=== PATIENT | male | born 1955 | race Caucasian/White ===

== ENCOUNTER 2016-07-24 15:49 | Inpatient (IN) | payer OTHER ==
[~2016-07-24] VITALS: Ht 185.4 cm; Wt 110.2 kg
[2016-07-24] MEDS ORDERED: DEXTROSE 50% SYRINGE 50 ML IV PRN ×2 (16:55→19:15)
[2016-07-24] MEDS ORDERED: GLUCAGON 1 MG VIAL IM PRN (16:55)
[2016-07-24 17:13] VITALS: BP_SYST 142; BP_SYST 144; RESP 18; TEMP 98.2
[2016-07-24 17:14] VITALS: BMI 32.1
[2016-07-24] MEDS: SOD CHLOR 0.9% 1000 ML IV SCH ×2 (17:40→22:26)
[2016-07-24] MEDS ORDERED: *PINK BRACELET XX ONE (18:30)
[2016-07-24] MEDS ORDERED: INSULIN DRIP 1 UNIT/ML 100 ML IV SCH (19:15)
[2016-07-24 19:23] VITALS: BP_SYST 139; RESP 18; TEMP 98.3
[2016-07-24] MEDS: *HOME MEDS KEPT IN PHARMACY XX SCH (20:00)
[2016-07-24] MEDS: DIVALPROEX DR 500 MG TAB PO SCH (21:13)
[2016-07-24] MEDS: METOPROLOL XL 50 MG TAB PO SCH (21:13)
[2016-07-24] MEDS: LEVETIRACETAM 500 MG TAB PO SCH (21:13)
[2016-07-24] MEDS: PREGABALIN 25 MG CAP PO SCH (21:13)
[2016-07-24 23:07] VITALS: BP_SYST 120; RESP 18; TEMP 96.7
[2016-07-25 03:49] VITALS: BP_SYST 125; RESP 18; TEMP 97.4
[2016-07-25] MEDS: PANTOPRAZOLE 40 MG TAB PO SCH (06:19)
[2016-07-25 07:18] VITALS: BP_SYST 114; RESP 18; TEMP 97.4
[2016-07-25] MEDS: *HOME MEDS KEPT IN PHARMACY XX SCH ×2 (08:00→19:31)
[2016-07-25] MEDS: SOD CHLOR 0.9% 1000 ML IV SCH (08:42)
[2016-07-25] MEDS ORDERED: GLUCAGON 1 MG VIAL IM PRN (08:45)
[2016-07-25] MEDS ORDERED: DEXTROSE 50% SYRINGE 50 ML IV PRN (08:45)
[2016-07-25] MEDS ORDERED: LEVEMIR INSULIN SUBQ SCH (09:00)
[2016-07-25] MEDS: DIVALPROEX DR 500 MG TAB PO SCH ×3 (09:10→21:00)
[2016-07-25] MEDS: METOPROLOL XL 50 MG TAB PO SCH ×2 (09:10→21:00)
[2016-07-25] MEDS: ASPIRIN 81 MG CHEW TAB PO SCH (09:10)
[2016-07-25] MEDS: LEVETIRACETAM 500 MG TAB PO SCH ×2 (09:10→21:00)
[2016-07-25] MEDS: PREGABALIN 25 MG CAP PO SCH ×2 (09:10→20:59)
[2016-07-25] MEDS: SODIUM CHLOR 0.45% W/KCL 20MEQ 1,000 ML IV SCH ×2 (09:12→20:57)
[2016-07-25] MEDS: KCL CR 10 MEQ TAB PO SCH ×2 (09:57→21:00)
[2016-07-25 10:52] VITALS: BP_SYST 118; RESP 18; TEMP 97.7
[2016-07-25] MEDS: NYSTATIN 500,000 UNITS/5 ML SUSP SWISH.SWAL SCH ×3 (15:14→20:59)
[2016-07-25 15:36] VITALS: BP_SYST 122; RESP 18; TEMP 97.6
[2016-07-25 19:00] VITALS: BP_SYST 125; RESP 18; TEMP 98.3
[2016-07-25] MEDS: LEVEMIR INSULIN SUBQ SCH (20:59)
[2016-07-25] MEDS ORDERED: KCL CR 20 MEQ TAB PO ONE (21:15)
[2016-07-25] MEDS: BETAMETH/CLOTRIM CR 15 GM TOPICAL SCH (22:34)
[2016-07-25 23:33] VITALS: BP_SYST 108; RESP 18; TEMP 98.3
[2016-07-26] VITALS (8 sets, daily range): BP systolic 114–144; RESP 16–18; TEMP 97.6–98.6
[2016-07-26] MEDS: PANTOPRAZOLE 40 MG TAB PO SCH (06:36)
[2016-07-26] MEDS: LEVEMIR INSULIN SUBQ SCH ×2 (08:20→21:01)
[2016-07-26] MEDS: LEVETIRACETAM 500 MG TAB PO SCH ×2 (08:21→20:44)
[2016-07-26] MEDS: DIVALPROEX DR 500 MG TAB PO SCH ×3 (08:21→20:44)
[2016-07-26] MEDS: ASPIRIN 81 MG CHEW TAB PO SCH (08:21)
[2016-07-26] MEDS: PREGABALIN 25 MG CAP PO SCH ×2 (08:21→20:43)
[2016-07-26] MEDS: BETAMETH/CLOTRIM CR 15 GM TOPICAL SCH ×2 (08:22→21:13)
[2016-07-26] MEDS: NYSTATIN 500,000 UNITS/5 ML SUSP SWISH.SWAL SCH ×4 (08:22→21:13)
[2016-07-26] MEDS: *HOME MEDS KEPT IN PHARMACY XX SCH ×2 (08:22→20:00)
[2016-07-26] MEDS: METOPROLOL XL 50 MG TAB PO SCH ×2 (08:22→20:44)
[2016-07-26] MEDS: KCL CR 10 MEQ TAB PO SCH (08:22)
[2016-07-26] MEDS: SODIUM CHLOR 0.45% W/KCL 20MEQ 1,000 ML IV SCH (09:17)
[2016-07-27 00:03] VITALS: BP_SYST 129; RESP 16; TEMP 97.7
[2016-07-27 02:00] VITALS: BP_SYST 134; RESP 16; TEMP 98.1
[2016-07-27] MEDS: PANTOPRAZOLE 40 MG TAB PO SCH (06:07)
[2016-07-27 07:19] VITALS: BP_SYST 134; RESP 20
[2016-07-27] MEDS: *HOME MEDS KEPT IN PHARMACY XX SCH (08:00)
[2016-07-27] MEDS: LEVEMIR INSULIN SUBQ SCH (08:11)
[2016-07-27] MEDS: PREGABALIN 25 MG CAP PO SCH (08:38)
[2016-07-27] MEDS: LEVETIRACETAM 500 MG TAB PO SCH (08:39)
[2016-07-27] MEDS: DIVALPROEX DR 500 MG TAB PO SCH (08:39)
[2016-07-27] MEDS: NYSTATIN 500,000 UNITS/5 ML SUSP SWISH.SWAL SCH ×2 (08:39→12:13)
[2016-07-27] MEDS: ASPIRIN 81 MG CHEW TAB PO SCH (08:39)
[2016-07-27] MEDS: METOPROLOL XL 50 MG TAB PO SCH (08:40)
[2016-07-27] MEDS: BETAMETH/CLOTRIM CR 15 GM TOPICAL SCH (08:41)
[2016-07-27] MEDS: SODIUM CHLOR 0.45% W/KCL 20MEQ 1,000 ML IV SCH (11:45)
[2016-07-27 11:56] VITALS: BP_SYST 140; RESP 20; TEMP 97.9
[2016-07-27 14:10] VITALS: Ht 185.4 cm; Wt 110.2 kg
[2016-07-27 15:22] VITALS: BP_SYST 140; RESP 20; TEMP 97.9
[2016-07-27 15:42] VITALS: BP_SYST 149; RESP 20; TEMP 97
== END 2016-07-27 16:18 | disposition home or self-care (01) | DRG 638 ==
LOC: ENRESERVTM → ENRESERVDT → 4THE 16:32 → ENPENDDIS 20:41 → OBSVTOIN 20:41
PROVIDERS: ADMIT Internal Medicine; ATTEND Internal Medicine
DX: E11.00 Type 2 diabetes mellitus with hyperosmolarity without nonketotic hyperglycemic-hyperosmolar coma (NKHHC) (principal); B37.0 Candidal stomatitis; K76.0 Fatty (change of) liver, not elsewhere classified; E86.0 Dehydration; G40.909 Epilepsy, unspecified, not intractable, without status epilepticus; E66.9 Obesity, unspecified; Z68.32 Body mass index [BMI] 32.0-32.9, adult; Z71.3 Dietary counseling and surveillance; E87.6 Hypokalemia; K21.9 Gastro-esophageal reflux disease without esophagitis; N40.0 Benign prostatic hyperplasia without lower urinary tract symptoms; I10 Essential (primary) hypertension
CPT/HCPCS: 36415; 36600; 80048; 80053; 80061; 82009; 82803; 82947; 83036; 83721; 83735; 84100; 84439; 84443; 84681; 85025